=== PATIENT | female | born 1945 | race Caucasian/White ===

== ENCOUNTER 2020-09-18 14:00 | Emergency (ER) | payer MEDICARE, OTHER ==
[~2020-09-18] VITALS: Ht 160 cm; Wt 100.7 kg
[~2020-09-18 14:00] MED LIST: ADVAIR 500-501 EACH; ALBUTEROL SULFAT4 MG; AUGMENTIN 875875 MG PO; CELEXA 10 MG TA10 M1; FLAGYL500 MG PO; GRALISE600 MG; HUMALOG100 UNIT/1; LANTUS; LASIX 20 MG TAB20 MG; LIPITOR10 MG; NORCO 5-325 TA1 EACH PO; PREDNISONE 10 M10 MG PO; PROVENTIL HFA6.7 G1; QUINU10 PD; SINGULAIR 10 MG10 M1; SYNTHROID50 MCG; ZOFRAN ODT4 MG PO
[2020-09-18 14:35] LABS: ABSOLUTE LYMPHOCYTES 1.5 thou/uL (0.8-5.3); EOSINOPHILS 0.2 %; MCH 31.3 pg (26.0-34.0)
[2020-09-18 14:37] LABS: ABSOLUTE BASOPHILS 0.1 thou/uL (0.0-0.2); ABSOLUTE NEUTROPHILS 13.5 thou/uL (1.6-8.1); BASOPHILS 0.9 %; HEMATOCRIT 33.5 % (37.0-47.0); HEMOGLOBIN 10.8 gm/dL (12.0-15.0); LYMPHOCYTES 9.3 %; MCHC 32.4 g/dL (28.0-37.0); MCV 96.5 fL (80.0-100.0); MONOCYTES 5.9 %; MPV 9.1 fl. (7.2-11.1); NUCLEATED RBCS 0 /100WBC; PLATELET COUNT* 171 thou/uL (150-400); POLYS 83.7 %; RBC 3.47 mil/uL (4.20-5.00); RDW-CV 14.7 % (10.5-14.5); WBC 16.2 thou/uL (4.0-11.0)
[2020-09-18] MEDS ORDERED: COZAAR 25 MG TA25 M1 (14:37)
[2020-09-18] MEDS ORDERED: SYNTHROID100 MC1 PO (14:37)
[2020-09-18] MEDS ORDERED: BUPROPION XL300 MG (14:38)
[2020-09-18] MEDS ORDERED: BRINTELLIX10 MG PO (14:38)
[2020-09-18] MEDS ORDERED: OXYCODONE HYDROC5 GM (14:40)
[2020-09-18] MEDS ORDERED: FLEXERIL (14:41)
[2020-09-18] MEDS ORDERED: SINGULAIR 10 MG10 M1 PO (14:41)
[2020-09-18] MEDS ORDERED: ALLOPURINOL 10100 M3 (14:41)
[2020-09-18] MEDS ORDERED: TOPROL XL25 MG PO (14:41)
[2020-09-18] MEDS ORDERED: EZALLOR SPRINKLE5 MG PO (14:43)
[2020-09-18 14:46] LABS: CALCIUM 8.5 mg/dL (8.5-10.1); CREATININE 1.6 mg/dL (0.6-1.3)
[2020-09-18 14:47] LABS: POTASSIUM 5.7 mmol/L (3.5-5.1)
[2020-09-18 14:51] LABS: ALBUMIN 2.9 g/dL (3.4-5.0); TOTAL BILIRUBIN 0.7 mg/dL (<0.1-1.0); TOTAL PROTEIN 7.4 g/dL (6.4-8.2)
[2020-09-18 16:01] LABS: URINE BILIRUBIN NEGATIVE (Negative); URINE BLOOD TRACE (Negative); URINE CLARITY CLEAR; URINE COLOR YELLOW; URINE GLUCOSE-RANDOM 3+ (Negative); URINE KETONES NEGATIVE (Negative); URINE LEUKOCYTES-REFLEX NEGATIVE (Negative); URINE NITRITE-REFLEX NEGATIVE (Negative); URINE PROTEIN NEGATIVE (Negative); URINE UROBILINOGEN 0.2 E.U./dl (0.2-1.0)
[2020-09-18 18:59] VITALS: BP 150/52
--- NOTE | 2020-09-19 16:25 | EKG ---
[place] [address] ELECTROCARDIOGRAM REPORT Name: ANDERSONEMERITA Berry Room: [facility]#: [id number] Admission: 09/18/20 Attend Phys: Discharge: 09/18/20 Date of : 45 Date of Service: 09/18/20 1447 Report #: [id number] THIS REPORT FOR: //name// [facility] ED Test Date: 2020-09-18 Test Time: 14:47:03 Pat Name: EMERITA BARRON Department: Room: Gender: [employer] Operator: SARAY : 1945 Requested By: Salma Worthy Order Number: [id number] MD: Emre Neves Measurements Intervals [place] Rate: 71 P: 60 [place]: 171 QRS: -23 QRSD: 90 T: 59 QT: 406 QTc: 442 Interpretive Statements Sinus rhythm Borderline left axis deviation Anterior infarct, old possible No previous ECG available for comparison Electronically Signed On 09-19-2020 16:24:57 [employer] by Emre Neves [email or web address] <ELECTRONICALLY SIGNED> By: Emre Neves MD, [facility] 09/19/20 1624 1447 144 Emre Neves MD, [facility] /EPI
== END 2020-09-18 19:00 | disposition short-term general hospital (02) ==
LOC: M.ERS 14:00
PROVIDERS: Nurse Practitioner Family
DX: E11.9 Type 2 diabetes mellitus without complications (principal); E87.6 Hypokalemia; R53.1 Weakness; Z20.828 Contact with and (suspected) exposure to other viral communicable diseases; E03.9 Hypothyroidism, unspecified; I10 Essential (primary) hypertension; R79.89 Other specified abnormal findings of blood chemistry; Z96.653 Presence of artificial knee joint, bilateral; Z88.8 Allergy status to other drugs, medicaments and biological substances